=== PATIENT | male | born 1990 | race Caucasian/White ===

== ENCOUNTER 2017-02-27 15:41 | Emergency (ER) | payer OTHER ==
[2017-02-27 16:08] VITALS: BP 118/74; PULSE 82; RESP 15; TEMP 99; O2SAT 96
[2017-02-27] MEDS ORDERED: LAMI200T PO (16:14)
[2017-02-27] MEDS ORDERED: GABA800T PO (16:14)
[2017-02-27] MEDS ORDERED: SODIUM CHLORIDE 0.9% FLUSH 10 ML FLUSH IVF PRN (16:30)
[2017-02-27] MEDS ORDERED: NALOXONE HCL 0.4 MG/ML AMP IV PUSH PRN (16:30)
--- NOTE | 2017-02-27 16:33 | PD ---
HPI Chief Complaint: OD/ Ingestion Time Seen by Provider: 16:29 Travel History International Travel<30 days: No Contact w/Intl Traveler<30days: No Traveled to known affect area: No History of Present Illness HPI 26-year-old male was brought in from the parking lot after episode of unconsciousness, revived with 4 mg Narcan IV. At first patient denied using anything, but then admitted to using IV heroin in the parking lot. Patient is currently alert and oriented 3 although somewhat lethargic. He has no medical complaints. IV is placed by EMS upon arrival. He has no known drug allergies. PFSH Past Medical History Gastrointestinal Disorders: Yes (CILIAC DISEASE) Social History Alcohol Use: No Tobacco Use: Yes (/2 PPD) Substance Use: Yes (OPIATES) Allergies-Medications (Allergen,Severity, Reaction): Coded Allergies: No Known Allergies (Unverified , 02/27/17) Reported Meds & Prescriptions Reported Meds & Active Scripts Active Reported Gabapentin 800 Mg Tab 800 Mg PO TID Lamictal (Lamotrigine) 200 Mg Tab 200 Mg PO DAILY Review of Systems ROS Limitations: Intoxication Except as stated in HPI: all other systems reviewed are Neg General / Constitutional: No: Fever Eyes: No: Visual changes HENT: No: Headaches Cardiovascular: No: Chest Pain or Discomfort Respiratory: No: Shortness of Breath Gastrointestinal: No: Abdominal Pain Genitourinary: No: Dysuria Musculoskeletal: No: Pain Skin: No Rash Neurologic: No: Weakness Psychiatric: No: Depression Endocrine: No: Polydipsia Hematologic/Lymphatic: No: Easy Bruising Physical Exam Exam Limitations: Intoxication Narrative GENERAL: Patient is in no acute distress. He is alert and sitting. He is able walk to the bathroom. He is mildly lethargic. SKIN: Warm and dry. Normal color. Normal turgor. No signs of cellulitis. HEAD: Atraumatic. Normocephalic. EYES: Pupils equal and round. No scleral icterus. No injection or drainage. ENT: No nasal bleeding or discharge. Mucous membranes pink and moist. Pharynx is clear. Airway is patent. NECK: Trachea midline. Supple and nontender. CARDIOVASCULAR: Regular rate and rhythm. RESPIRATORY: No accessory muscle use. Clear to auscultation. Breath sounds equal bilaterally. MUSCULOSKELETAL: Extremities without clubbing, cyanosis, or edema. No obvious deformities. NEUROLOGICAL: Awake and alert. No obvious cranial nerve deficits. Motor grossly within normal limits. Five out of 5 muscle strength in the arms and legs. Normal speech. PSYCHIATRIC: Appropriate mood and affect; insight and judgment normal. Data Data Last Documented VS Vital Signs Date Time Temp Pulse Resp B/P (MAP) Pulse Ox O2 Delivery O2 Flow Rate FiO2 02/27/17 16:08 99.0 82 15 118/74 (89) 96 Orders Orders Electrocardiogram (02/27/17 16:27) Basic Metabolic Panel (Bmp) (02/27/17 16:27) Complete Blood Count With Diff (02/27/17 16:27) Iv Access Insert/Monitor (02/27/17 16:) Ecg Monitoring (02/27/17 16:) Oximetry (02/27/17 16:) Naloxone Inj (Narcan Inj) (02/27/17 16:30) Sodium Chloride 0.9% Flush (Ns Flush) (02/27/17 16:30) Labs Laboratory Tests Test 02/27/17 16:04 White Blood Count 10.5 TH/MM3 Red Blood Count 4.76 MIL/MM3 Hemoglobin 14.1 GM/DL Hematocrit 41.9 % Mean Corpuscular Volume 88.0 FL Mean Corpuscular Hemoglobin 29.7 PG Mean Corpuscular Hemoglobin Concent 33.7 % Red Cell Distribution Width 12.7 % Platelet Count 213 TH/MM3 Mean Platelet Volume 7.4 FL Neutrophils (%) (Auto) 84.5 % Lymphocytes (%) (Auto) 7.4 % Monocytes (%) (Auto) 7.4 % Eosinophils (%) (Auto) 0.5 % Basophils (%) (Auto) 0.2 % Neutrophils # (Auto) 8.9 TH/MM3 Lymphocytes # (Auto) 0.8 TH/MM3 Monocytes # (Auto) 0.8 TH/MM3 Eosinophils # (Auto) 0.0 TH/MM3 Basophils # (Auto) 0.0 TH/MM3 CBC Comment DIFF FINAL Differential Comment Blood Urea Nitrogen 10 MG/DL Creatinine 1.12 MG/DL Random Glucose 86 MG/DL Calcium Level 9.2 MG/DL Sodium Level 135 MEQ/L Potassium Level 4.5 MEQ/L Chloride Level 99 MEQ/L Carbon Dioxide Level 31.8 MEQ/L Anion Gap 4 MEQ/L Estimat Glomerular Filtration Rate 81 ML/MIN MDM Medical Decision Making Medical Screen Exam Complete: Yes Emergency Medical Condition: Yes Differential Diagnosis Narcotic overdose. Syncopal episode secondary to illicit drug use. Narcan revived. Need for monitoring 4 hours. Narrative Course Patient is mainly stable at time of exam. Basic labs ordered including CBC, BMP, and patient is to be monitored for the next 4 hours to ensure no recurrent syncopal episodes. Patient is informed that if he leaves he will be brought back on a police as he would be considered a Gates act. Patient is awaiting med bed placement to be monitored. Labs are unremarkable. Patient refused EKG. Patient is monitored until 1940 hrs. without recurrence of symptomatology. Patient is felt to be stable for discharge. Diagnosis Primary Impression: Active intravenous drug use Additional Impression: Opiate or related narcotic overdose Qualified Codes: T40.601A - Poisoning by unspecified narcotics, accidental ( unintentional), initial encounter Referrals: [facility] Patient Instructions: General Instructions, Polysubstance Abuse (ED) Additional Instructions: Patient is monitored until 1940 hrs. without recurrence of symptomatology. Patient is felt to be stable for discharge. Med/Other Pt SpecificInfo: No Meds Exist/No RX given Disposition: 01 DISCHARGE HOME Condition: Stable Luca Wilson Feb 27, 2017 16:33
[2017-02-27 17:21] LABS: AUTOMATED NEUTROPHIL # 8.9 TH/MM3 (1.8-7.7); BASOPHIL % 0.2 % (0.0-2.0); EOSINOPHIL % 0.5 % (0.0-4.0); HEMATOCRIT 41.9 % (39.0-51.0); HEMO FLAGS DIFF FINAL; LYMPH % 7.4 % (9.0-44.0); LYMPHOCYTE # 0.8 TH/MM3 (1.0-4.8); MEAN CORPUSCULAR HEMOGLOBIN 29.7 PG (27.0-34.0); MEAN CORPUSCULAR HGB CONC 33.7 % (32.0-36.0); MONO % 7.4 % (0.0-8.0); NEUT % 84.5 % (16.0-70.0); PLATELET COUNT 213 TH/MM3 (150-450); RED BLOOD COUNT 4.76 MIL/MM3 (4.50-5.90); RED CELL DISTRIBUTION WIDTH 12.7 % (11.6-17.2); WHITE BLOOD COUNT 10.5 TH/MM3 (4.0-11.0)
[2017-02-27 17:54] LABS: BICARBONATE 31.8 MEQ/L (21.0-32.0); POTASSIUM 4.5 MEQ/L (3.5-5.1)
== END 2017-02-27 19:40 | disposition home or self-care (01) ==
LOC: NEDAMB 15:41
DX: T40.1X1A Poisoning by heroin, accidental (unintentional), initial encounter (principal); F17.200 Nicotine dependence, unspecified, uncomplicated
CPT/HCPCS: 80048; 85025; 99283